=== PATIENT | female | born 1970 | race Hispanic/Latino ===

== ENCOUNTER → 2024-09-13 | Outpatient (CLI) | payer OTHER ==
--- NOTE | 2024-09-13 16:01 | HMCIMG ---
KNEE/PATELLA 1-2VWS LT REASON: ARTHRITIS TECHNIQUE: 2 views were obtained. FINDINGS: There is mild patellofemoral joint space narrowing. There are osteophytes along the medial joint line. The lateral joint line appears unremarkable. There are no focal osseous lesions. There is no evidence of joint effusion. IMPRESSION: 1. Mild osteoarthritis most pronounced in the patellofemoral joint space.
--- NOTE | 2024-09-13 16:01 | HMCIMG ---
KNEE/PATELLA 1-2VWS RT REASON: ARTHRITIS TECHNIQUE: 2 views were obtained. FINDINGS: There is moderate patellofemoral joint space narrowing consistent with osteoarthritis. Medial and lateral joint spaces appear preserved but there are osteophytes along both joint margins, most pronounced on the medial side. There are no focal osseous lesions. There is no evidence of joint effusion. IMPRESSION: 1. Moderate osteoarthritis most pronounced in the patellofemoral joint space.
== END | disposition home or self-care (01) ==
LOC: RAH 15:06
PROVIDERS: ATTEND Internal Medicine
DX: M17.0 Bilateral primary osteoarthritis of knee (principal); M25.762 Osteophyte, left knee; M25.761 Osteophyte, right knee
CPT/HCPCS: 73560